=== PATIENT | male | born 1990 | race Caucasian/White ===

== ENCOUNTER 2017-08-18 23:55 | Emergency (ER) | payer MEDICARE, MEDICAID ==
[~2017-08-18] VITALS: Ht 165.1 cm; Wt 52.2 kg
[~2017-08-18 23:55] MED LIST: AGM875T PO; NF-METHYLP PO
--- OUTSIDE RECORDS SUMMARY | 2017-08-19 00:01 | XMS REPORT | Continuity of Care Document ---
Author Author [facility] Organization [facility] Address Unknown Phone Unavailable Allergies Active Description Code Type Severity Reaction Onset Reported/Identified Relationship to Patient Clinical Status Yes prednisone Drug Allergy N/A N/A 08/08/2013 Medications There is no data. Problems Date Dx Coded Attending Type Code Diagnosis Diagnosed By 02/25/2011 111.0 TINEA VERSICOLOR 02/25/2011 V04.81 FLU DX (3 YRS AND ABOVE, IM) 02/25/2011 ALVA JAQUEZ DO 111.0 TINEA VERSICOLOR 02/25/2011 ALVA JAQUEZ DO V04.81 FLU DX (3 YRS AND ABOVE, IM) 02/25/2011 MARISOL REDDY APRN 111.0 TINEA VERSICOLOR 02/25/2011 MARISOL REDDY APRN V04.81 FLU DX (3 YRS AND ABOVE, IM) 02/25/2011 MARISOL REDDY APRN 111.0 TINEA VERSICOLOR 02/25/2011 MARISOL REDDY APRN V04.81 FLU DX (3 YRS AND ABOVE, IM) 10/13/2011 V74.5 STD SCREEN 10/13/2011 ALVA JAQUEZ DO V74.5 STD SCREEN 10/13/2011 MARISOL REDDY APRN V74.5 STD SCREEN 10/13/2011 MARISOL REDDY APRN V74.5 STD SCREEN 07/14/2013 ALVA JAQUEZ DO 461.9 SINUSITIS ACUTE 07/14/2013 ALVA JAQUEZ DO 789.00 ABDOMINAL PAIN UNSPECIFIED SITE 07/14/2013 MARISOL REDDY APRN 461.9 SINUSITIS ACUTE 07/14/2013 MARISOL REDDY APRN 789.00 ABDOMINAL PAIN UNSPECIFIED SITE 07/14/2013 MARISOL REDDY APRN 461.9 SINUSITIS ACUTE 07/14/2013 MARISOL REDDY APRN 789.00 ABDOMINAL PAIN UNSPECIFIED SITE 08/08/2013 MARISOL REDDY APRN 477.9 RHINITIS 08/08/2013 MARISOL REDDY APRN 477.9 RHINITIS 08/18/2013 MARISOL REDDY APRN 780.52 INSOMNIA UNSPECIFIED 08/18/2013 MARISOL REDDY APRN 784.0 HEADACHE Procedures Code [place] [address] ROUTINE VENIPUNCTURE 08/18/2013 47119 URINE DRUG SCREEN (IN-HOUSE ) 08/18/2013 78398 CBC 08/18/2013 8477011 GFR CALC (RESULT ONLY) 08/18/2013 06124 CMP 08/18/2013 92732 LIPID PANEL 08/18/2013 31672 TSH 08/18/2013 Results There is no data. Encounters ACCT No. Visit Date/Time Discharge Status Pt. Type Provider Facility Loc./Unit Complaint [id number] 07/16/2013 21:16:00 07/16/2013 22:22:00 DIS Emergency [id number] 07/15/2013 15:24:00 07/15/2013 16:43:00 DIS Emergency [id number] 08/18/2013 15:15:00 08/18/2013 23:59:59 CLS Outpatient MARISOL REDDY APRN [id number] 08/08/2013 12:44:00 08/08/2013 23:59:59 CLS Outpatient MARISOL REDDY APRN [id number] 07/14/2013 13:07:00 07/14/2013 23:59:59 CLS Outpatient ALVA JAQUEZ DO [id number] 10/13/2011 13:45:00 10/13/2011 23:59:59 CLS Outpatient [id number] 04/24/2015 16:52:47 04/24/2015 23:59:59 CLS Outpatient Blake Servin
--- OUTSIDE RECORDS SUMMARY | 2017-08-19 00:01 | XMS REPORT ---
Author Author Blake Servin [facility] Address [address] [place], [place] [id number] Care Team Providers Care Newscast Producer Name Role Phone Blake Servin PCP Allergies and Adverse Reactions Name Reaction Notes No known drug allergy Plan of Treatment Not available. Medications Name Start Date Expiration Date SIG Comments benztropine 1 mg oral tablet 08/02/2014 10/31/2014 take 1 tablet (1 mg) by oral route 2 times per day for 30 days olanzapine 20 mg oral tablet 08/02/2014 10/31/2014 take 1 tablet (20 mg) by oral route once daily for 30 days omeprazole 40 mg oral capsule,delayed release(DR/EC) 08/02/2014 10/31/2014 take 1 capsule (40 mg) by oral route once daily before a meal for 30 days risperidone 2 mg oral tablet 08/02/2014 10/31/2014 take 1 tablet (2 mg) by oral route 2 times per day for 30 days trazodone 100 mg oral tablet 09/13/2014 10/13/2014 take 1 tablet by oral route once a day (at bedtime) for 30 days Problem List Description Status Onset Bipolar 1 disorder Active Psychosis, Depressive Type Active Cerebral palsy Active Vital Signs Date Time BP-Sys(mm[Hg] BP-Melissa(mm[Hg]) HR(bpm) RR(rpm) Temp WT HT HC BMI BSA BMI Percentile O2 Sat(%) 08/02/2014 8:53:00 AM 110 mmHg 80 mmHg 113 bpm 16 rpm 97.3 F 113 lbs 100 % Social History Name Description Comments Tobacco Never smoker History of Procedures Date Ordered Description Order Status 04/24/2015 12:00 AM INFLUENZA VACCINE QUADRIVALENT 3 YRS PLUS IM Reviewed Results Summary Not available. History Of Immunizations Name Date Admin Mfg Name Mfg Code Trade Name Lot# Route Inj Vis Given Vis Pub CVX Influenza 04/24/2015 sanofi pasteur PMC Fluzone Quadrivalent [id number] Intramuscular Left Deltoid 04/24/2015 01/18/2015 141 History of Past Illness Name Date of Onset Comments Bipolar 1 disorder Psychosis, Depressive Type Cerebral palsy Bipolar 1 disorder Aug 02 2014 8:55AM Psychosis, Depressive Type Aug 02 2014 8:55AM Cerebral palsy Aug 02 2014 8:55AM Flu Vaccine Apr 24 2015 4:01PM Payers Insurance Name Company Name Plan Name Plan Number Policy Number Policy Group Number Start Date [employer] [facility] [place] [facility] [place] [id number] N/A [facility] [place] [facility] 12[facility] July History of Encounters Visit Date Visit Type Provider 04/24/2015 Nurse visit Blake Servin APRN 08/02/2014 Office visit Blake Servin APRN
[2017-08-19 00:58] LABS: BASOPHILS % (AUTO) 0 % (0-10); EOSINOPHILS # (AUTO) 0.2 10^3/uL (0.0-0.3); EOSINOPHILS % (AUTO) 1 % (0-10); HEMATOCRIT 43 % (40-54); HEMOGLOBIN 15.8 G/DL (13.3-17.7); LYMPHOCYTES % (AUTO) 14 % (12-44); MEAN CORPUSCULAR HEMOGLOBIN 31 PG (25-34); MEAN CORPUSCULAR HGB CONC 37 G/DL (32-36); MEAN CORPUSCULAR VOLUME 85 FL (80-99); MONOCYTES # (AUTO) 0.9 X 10^3 (0.0-1.0); MONOCYTES % (AUTO) 7 % (0-12); NEUTROPHILS # (AUTO) 10.7 X 10^3 (1.8-7.8); NEUTROPHILS % (AUTO) 77 % (42-75); PLATELET COUNT 201 10^3/uL (130-400); RED BLOOD COUNT 5.09 10^6/uL (4.35-5.85); RED CELL DISTRIBUTION WIDTH 12.5 % (10.0-14.5); WHITE BLOOD COUNT 13.9 10^3/uL (4.3-11.0)
[2017-08-19 01:18] LABS: ALANINE AMINOTRANSFERASE 15 U/L (0-55); ALBUMIN 4.4 GM/DL (3.2-4.5); ALKALINE PHOSPHATASE 59 U/L (40-136); BILIRUBIN,TOTAL 0.3 MG/DL (0.1-1.0); BUN/CREATININE RATIO 14; CALCIUM 8.8 MG/DL (8.5-10.1); CARBON DIOXIDE 25 MMOL/L (21-32); CHLORIDE 104 MMOL/L (98-107); CREATININE SERUM 0.93 MG/DL (0.60-1.30); GFR ESTIMATED > 60; GLUCOSE 137 MG/DL (70-105); MAGNESIUM 2.4 MG/DL (1.8-2.4); POTASSIUM 3.2 MMOL/L (3.6-5.0); SODIUM 141 MMOL/L (135-145); TOTAL PROTEIN 7.2 GM/DL (6.4-8.2)
[2017-08-19 01:38] LABS: TSH (THYROID ANALYZER) 2.39 UIU/ML (0.35-4.94)
[2017-08-19] MEDS ORDERED: LACTATED RINGERS 1,000 ML IV ONE (01:55)
[2017-08-19 02:09] LABS: BILIRUBIN,URINE NEGATIVE (NEGATIVE); COLOR,URINE YELLOW; GLUCOSE, URINE (UA) 1+ (NEGATIVE); KETONES,URINE NEGATIVE (NEGATIVE); LEUKOCYTE ESTERASE ,URINE 1+ (NEGATIVE); NITRITE,URINE NEGATIVE (NEGATIVE); PH,URINE 6 (5-9); PROTEIN,URINE 2+ (NEGATIVE); UROBILINOGEN,URINE 1 MG/DL (NORMAL)
[2017-08-19 02:18] LABS: BACTERIA,URINE TRACE /HPF; CALCIUM OXALATE CRYSTALS,UR MODERATE /LPF; CLARITY,URINE SLIGHTLY CLOUDY; SQUAMOUS EPITHELIAL CELL,UR RARE /HPF; WBC,URINE RARE /HPF
[2017-08-19 02:25] LABS: AMPHETAMINE SCREEN, URINE NEGATIVE (NEGATIVE); BARBITURATE SCREEN URINE NEGATIVE (NEGATIVE); BENZODIAZEPINES SCREEN URINE NEGATIVE (NEGATIVE); CANNABINOID SCREEN, URINE POSITIVE (NEGATIVE); COCAINE SCREEN URINE NEGATIVE (NEGATIVE); METHADONE STAT NEGATIVE (NEGATIVE); METHAMPHETAMINE SCREEN URINE S NEGATIVE (NEGATIVE); OPIATE SCREEN URINE NEGATIVE (NEGATIVE); OXYCODONE STAT NEGATIVE (NEGATIVE); PROPOXYPHENE STAT NEGATIVE (NEGATIVE); TRICYCLIC ANTIDEPRESSANTS SCRE POSITIVE (NEGATIVE)
--- NOTE | 2017-08-19 02:41 | ED Syncope ---
General Chief Complaint: Dizziness/Syncope Stated Complaint: BLACKED OUT-AT HOME Allergies and Home Medications Allergies Coded Allergies: No Known Drug Allergies (Unverified , 09/06/11) Home Medications Amoxicillin/Clavulanate K 875 Mg Tab, 875 MG PO BID, (Reported) Past Eozvema-Awybxy-Kpjhhx Hx Patient Social History Recent Foreign Travel: No Contact w/Someone Who Travel: No Immunizations Up To Date Date of Influenza Vaccine: Jul 14, 2013 Reproductive System Hx Reproductive Disorders: No Sexually Transmitted Disease: No Physical Exam Vital Signs Capillary Refill : Progress/Results/Core Measures Results/Orders Lab Results Laboratory Tests Test 08/19/17 00:50 08/19/17 01:55 Range/Units White Blood Count 13.9 H 4.3-11.0 10^3/uL Red Blood Count 5.09 4.35-5.85 10^6/uL Hemoglobin 15.8 13.3-17.7 G/DL Hematocrit 43 40-54 % Mean Corpuscular Volume 85 80-99 FL Mean Corpuscular Hemoglobin 31 25-34 PG Mean Corpuscular Hemoglobin Concent 37 H 32-36 G/DL Red Cell Distribution Width 12.5 10.0-14.5 % Platelet Count 201 130-400 10^3/uL Mean Platelet Volume 11.0 H 7.4-10.4 FL Neutrophils (%) (Auto) 77 H 42-75 % Lymphocytes (%) (Auto) 14 12-44 % Monocytes (%) (Auto) 7 0-12 % Eosinophils (%) (Auto) 1 0-10 % Basophils (%) (Auto) 0 0-10 % Neutrophils # (Auto) 10.7 H 1.8-7.8 X 10^3 Lymphocytes # (Auto) 2.0 1.0-4.0 X 10^3 Monocytes # (Auto) 0.9 0.0-1.0 X 10^3 Eosinophils # (Auto) 0.2 0.0-0.3 10^3/uL Basophils # (Auto) 0.0 0.0-0.1 10^3/uL Sodium Level 141 135-145 MMOL/L Potassium Level 3.2 L 3.6-5.0 MMOL/L Chloride Level 104 98-107 MMOL/L Carbon Dioxide Level 25 21-32 MMOL/L Anion Gap 12 5-14 MMOL/L Blood Urea Nitrogen 13 7-18 MG/DL Creatinine 0.93 0.60-1.30 MG/DL Estimat Glomerular Filtration Rate > 60 BUN/Creatinine Ratio 14 Glucose Level 137 H 70-105 MG/DL Calcium Level 8.8 8.5-10.1 MG/DL Magnesium Level 2.4 1.8-2.4 MG/DL Total Bilirubin 0.3 0.1-1.0 MG/DL Aspartate Amino Transf (AST/SGOT) 15 5-34 U/L Alanine Aminotransferase (ALT/SGPT) 15 0-55 U/L Alkaline Phosphatase 59 40-136 U/L Troponin I < 0.30 <0.30 NG/ML Total Protein 7.2 6.4-8.2 GM/DL Albumin 4.4 3.2-4.5 GM/DL TSH [place] Testing 2.39 0.35-4.94 UIU/ML Serum Alcohol < 10 <10 MG/DL Urine Color YELLOW Urine Clarity SLIGHTLY CLOUDY Urine pH 6 5-9 Urine Specific [place] 1.030 H 1.016-1.022 Urine Protein 2+ H NEGATIVE Urine Glucose (UA) 1+ H NEGATIVE Urine Ketones NEGATIVE NEGATIVE Urine Nitrite NEGATIVE NEGATIVE Urine Bilirubin NEGATIVE NEGATIVE Urine Urobilinogen 1 NORMAL MG/DL Urine Leukocyte Esterase 1+ H NEGATIVE Urine RBC (Auto) NEGATIVE NEGATIVE Urine RBC NONE /HPF Urine WBC RARE /HPF Urine Squamous Epithelial Cells RARE /HPF Urine Crystals PRESENT H /LPF Urine Calcium Oxalate Crystals MODERATE H /LPF Urine Bacteria TRACE /HPF Urine Casts NONE /LPF Urine Mucus LARGE H /LPF Urine Culture Indicated NO Urine Opiates Screen NEGATIVE NEGATIVE Urine Oxycodone Screen NEGATIVE NEGATIVE Urine Methadone Screen NEGATIVE NEGATIVE Urine Propoxyphene Screen NEGATIVE NEGATIVE Urine Barbiturates Screen NEGATIVE NEGATIVE Ur Tricyclic Antidepressants Screen POSITIVE H NEGATIVE Urine Phencyclidine Screen NEGATIVE NEGATIVE Urine Amphetamines Screen NEGATIVE NEGATIVE Urine Methamphetamines Screen NEGATIVE NEGATIVE Urine Benzodiazepines Screen NEGATIVE NEGATIVE Urine Cocaine Screen NEGATIVE NEGATIVE Urine Cannabinoids Screen POSITIVE H NEGATIVE My Orders Orders - PHILIPPE,ROS K DO Saline Lock/Iv-Start (08/19/17 00:07) Ekg Tracing (08/19/17 00:07) Monitor-Rhythm Ecg Trace Only (08/19/17 00:07) Orthostatic Vital Signs (Adult (08/19/17 00:07) Alcohol (08/19/17 00:07) Cbc With Automated Diff (08/19/17 00:07) Comprehensive Metabolic Panel (08/19/17 00:07) Drug Screen Stat (Urine) (08/19/17 00:07) Magnesium (08/19/17 00:07) Thyroid Analyzer (08/19/17 00:07) Troponin I (08/19/17 00:07) Ua Culture If Indicated (08/19/17 00:07) Ct Head Wo (08/19/17 00:07) Chest 1 View, Ap/Pa Only (08/19/17 00:07) Saline Lock/Iv-Start (08/19/17 01:55) Lactated Ringers (Lr 1000 Ml Iv Solution (08/19/17 01:55) Medications Given in ED Current Medications Medications Dose Ordered Sig/Cathy Route Start Time Stop Time Status Last Admin Dose Admin Lactated Ringer's 1,000 ml @ 0 mls/hr Q0M ONCE IV 08/19/17 01:55 08/19/17 01:57 DC 08/19/17 02:08 1,000 MLS/HR Departure Impression Impression: Primary Impression: Syncope Additional Impressions: Volume depletion MILD HYPERGLYCEMIA MILD HYPOKALEMIA Disposition: 01 HOME, SELF-CARE Condition: Stable Departure-Patient Inst. Referrals: [facility] (PCP/Family) Primary Care Physician Patient Instructions: Syncope (Fainting) (DC) Add. Discharge Instructions: LOTS OF CLEAR LIQUIDS--WATER, BROTH, JELLO, GATORADE--REDUCED SUGAR SLOW POSITION CHANGES TAKE YOUR MEDICATIONS PRESCRIBED FOLLOW UP WITH [facility] THIS WEEK FOR FURTHER CARE, RETURN TO ER IF SYMPTOMS RETURN OR WORSEN All discharge instructions reviewed with patient and/or family. Voiced understanding. ROS PAEZ DO Aug 19, 2017 02:41
[2017-08-19 02:52] VITALS: BP 121/76
--- NOTE | 2017-08-19 05:17 | Diagnostic Imaging Report ---
INDICATION: Syncope COMPARISON: None FINDINGS: Single frontal view of the chest demonstrates normal heart size and pulmonary vascularity. The lungs are well aerated and clear. No large pleural effusion or pneumothorax is seen. The visualized osseous structures show no acute abnormalities. IMPRESSION: 1. No acute cardiopulmonary process. Dictated by: Dictated on workstation # [id number]
--- NOTE | 2017-08-19 06:15 | Diagnostic Imaging Report ---
INDICATION: Syncope. TECHNIQUE: Routine non contrast-enhanced axial images were obtained from the skull base to the vertex. COMPARISON: None. FINDINGS: The ventricles and cortical sulci are normal in size and contour. There is no midline shift or mass-effect. No acute intra-axial hemorrhage is seen. There are no abnormal areas of increased or decreased density to suggest acute hemorrhage or edema. No extra-axial masses or collections are present. The bony calvarium is intact. The visualized paranasal sinuses show small amount of debris within the right sphenoid sinus. The mastoid air cells are clear. IMPRESSION: 1. No acute intracranial abnormality. No CT evidence of mass, acute infarct or intracranial hemorrhage. 2. Small amount of debris within the right sphenoid sinus. Correlation for underlying acute sinusitis is recommended. Dictated by: Dictated on workstation # [id number]
[2017-08-19] MEDS ORDERED: PALI6TAB PO (07:06)
[2017-08-19] MEDS ORDERED: QUET200T PO (07:06)
[2017-08-19] MEDS ORDERED: OXCA300T PO (07:06)
== END 2017-08-19 02:52 | disposition home or self-care (01) ==
LOC: EDUNIT# 23:55 → ER 23:57
DX: R55 Syncope and collapse (principal); E86.9 Volume depletion, unspecified; R73.9 Hyperglycemia, unspecified; E87.6 Hypokalemia
CPT/HCPCS: 36415; 70450; 71045; 80053; 80306; 80320; 81000; 83735; 84443; 84484; 85025; 93005; 93041; 96360

== ENCOUNTER 2020-09-11 22:46 | Emergency (ER) | payer MEDICARE, MEDICAID ==
[~2020-09-11] VITALS: Ht 165.1 cm; Wt 49.9 kg
[~2020-09-11 22:46] MED LIST changes: +OXCA300T18 PO; +PALI6TAB PO; +QUET200T PO
[2020-09-11] MEDS ORDERED: NS IV 1000 ML 1,000 ML ONE (23:17)
--- NOTE | 2020-09-11 23:39 | ED General ---
General Chief Complaint: Cough/Cold/Flu Symptoms Stated Complaint: FEVER/BODY ACHES/DIARRHEA Source of Information: Patient Exam Limitations: Intoxication History of Present Illness Date Seen by Provider: Sep 11, 2020 Time Seen by Provider: 23:20 Initial Comments Patient is a 29-year-old male who presents to the emergency department with multiple complaints tonight. Patient appears actively intoxicated at presentation. He is glassy eyed and speaking very quietly. He states that he has been vomiting for about 6 months. Patient states he is also had fevers off and on for 6 months and he is concerned that he might have coronavirus. Further history per his nurse was that the patient started getting worse at around 6 PM this evening. He admits to alcohol and marijuana use this evening. He also states that he has occasionally used cocaine but cannot recall the last time he actually did cocaine. Patient states that he has a mildly sore throat. He has a mild headache. He is a little nauseated currently. Patient has a history of mental illness. No thoughts of suicide or homicide tonight. He cannot really tell me if he is hearing voices or seeing things. He does appear to be hallucinating and looking around the room. All other review of systems reviewed and negative except as stated. Timing/Duration: 4-6 Hours Severity: Moderate Associated Systoms: Fever/Chills, Headaches, Loss of Appetite, Malaise, Nausea/Vomiting Allergies and Home Medications Allergies Coded Allergies: No Known Drug Allergies (Unverified , 09/06/11) Home Medications Amoxicillin/Clavulanate K 875 Mg Tab, 875 MG PO BID, (Reported) Oxcarbazepine 300 Mg Tablet, 300 MG PO HS, (Reported) Paliperidone 6 Mg Tab.er.24, 6 MG PO DAILY, (Reported) Quetiapine Fumarate 200 Mg Tablet, 200 MG PO HS, (Reported) Patient Home Medication List Home Medication List Reviewed: Yes Review of Systems Review of Systems Constitutional: see HPI EENTM: throat pain Respiratory: cough, short of breath Cardiovascular: no symptoms reported Gastrointestinal: diarrhea, nausea, vomiting Genitourinary: no symptoms reported Musculoskeletal: no symptoms reported Skin: no symptoms reported Psychiatric/Neurological: Emotional Problems, Headache All Other Systems Reviewed Negative Unless Noted: Yes Past Icciqqp-Bdmxsh-Oczlks Hx Immunizations Up To Date PED Vaccines UTD: Yes Date of Influenza Vaccine: Jul 14, 2013 Past Medical History Surgeries: Yes ("BALLOONS IN LUNGS" --REMOVED AT AGE 16; EYE SURGERY; HERNIA REPAIR) Abdominal, Eye Surgery Respiratory: Yes (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 AT AGE 16) Cardiac: No Neurological: Yes Cerebral Palsy, Developmental Disorder, Seizure Disorder Reproductive Disorders: No Sexually Transmitted Disease: No Genitourinary: No Gastrointestinal: Yes (HERNIA REPAIR) Abdominal Hernia Musculoskeletal: Yes (CP) Endocrine: No HEENT: Yes (EYE SURGERY) Cancer: No Psychosocial: Yes (UNDIFFERENTIATED PSYCHOSIS, SLEEPING DISORDER, MR) Sleep Difficulties, Schizophrenia Integumentary: No Blood Disorders: No Physical Exam Vital Signs Vital Signs - First Documented 09/11/20 22:57 Temp 37.2 Pulse 147 Resp 20 B/P (MAP) 144/90 (108) O2 Delivery Room Air Capillary Refill : Height, Weight, BMI Height: 5'5.00" Weight: 115lbs. oz. 52.025552km; BMI Method:Stated General Appearance: No Apparent Distress, WD/WN Eyes: Bilateral Eye Normal Inspection, Bilateral Eye PERRL, Bilateral Eye EOMI HEENT: PERRL/EOMI (scleral injection), Pharynx Normal Neck: Normal Inspection Respiratory: Lungs Clear, Normal Breath Sounds, No Accessory Muscle Use, No Respiratory Distress Cardiovascular: Regular Rate, Rhythm, Tachycardia Gastrointestinal: Non Tender, Soft Extremity: Normal Capillary Refill, Normal Inspection, Normal Range of Motion Neurologic/Psychiatric: Alert, Oriented x3, No Motor/Sensory Deficits, Depressed Affect Skin: Normal Color, Warm/Dry Progress/Results/Core Measures Suspected Sepsis SIRS Temperature: Pulse: Respiratory Rate: Laboratory Tests 09/11/20 23:15: White Blood Count 11.3H Blood Pressure / Mean: Laboratory Tests 09/11/20 23:15: Creatinine 0.90, Platelet Count 205, Total Bilirubin 0.7 Results/Orders Lab Results Laboratory Tests Test 09/11/20 00:02 09/11/20 23:15 Range/Units Urine Opiates Screen NEGATIVE NEGATIVE Urine Oxycodone Screen NEGATIVE NEGATIVE Urine Methadone Screen NEGATIVE NEGATIVE Urine Propoxyphene Screen NEGATIVE NEGATIVE Urine Barbiturates Screen NEGATIVE NEGATIVE Ur Tricyclic Antidepressants Screen POSITIVE H NEGATIVE Urine Phencyclidine Screen NEGATIVE NEGATIVE Urine Amphetamines Screen NEGATIVE NEGATIVE Urine Methamphetamines Screen NEGATIVE NEGATIVE Urine Benzodiazepines Screen NEGATIVE NEGATIVE Urine Cocaine Screen NEGATIVE NEGATIVE Urine Cannabinoids Screen POSITIVE H NEGATIVE White Blood Count 11.3 H 4.3-11.0 10^3/uL Red Blood Count 5.66 H 4.30-5.52 10^6/uL Hemoglobin 17.6 13.3-17.7 g/dL Hematocrit 50 40-54 % Mean Corpuscular Volume 88 80-99 fL Mean Corpuscular Hemoglobin 31 25-34 pg Mean Corpuscular Hemoglobin Concent 35 32-36 g/dL Red Cell Distribution Width 11.9 10.0-14.5 % Platelet Count 205 130-400 10^3/uL Mean Platelet Volume 10.9 9.0-12.2 fL Immature Granulocyte % (Auto) 0 % Neutrophils (%) (Auto) 79 H 42-75 % Lymphocytes (%) (Auto) 14 12-44 % Monocytes (%) (Auto) 6 0-12 % Eosinophils (%) (Auto) 0 0-10 % Basophils (%) (Auto) 0 0-10 % Neutrophils # (Auto) 8.9 H 1.8-7.8 10^3/uL Lymphocytes # (Auto) 1.6 1.0-4.0 10^3/uL Monocytes # (Auto) 0.7 0.0-1.0 10^3/uL Eosinophils # (Auto) 0.0 0.0-0.3 10^3/uL Basophils # (Auto) 0.0 0.0-0.1 10^3/uL Immature Granulocyte # (Auto) 0.0 0.0-0.1 10^3/uL Sodium Level 138 135-145 MMOL/L Potassium Level 3.2 L 3.6-5.0 MMOL/L Chloride Level 102 98-107 MMOL/L Carbon Dioxide Level 20 L 21-32 MMOL/L Anion Gap 16 H 5-14 MMOL/L Blood Urea Nitrogen 7 7-18 MG/DL Creatinine 0.90 0.60-1.30 MG/DL Estimat Glomerular Filtration Rate > 60 BUN/Creatinine Ratio 8 Glucose Level 125 H 70-105 MG/DL Calcium Level 9.3 8.5-10.1 MG/DL Corrected Calcium 8.5-10.1 MG/DL Total Bilirubin 0.7 0.1-1.0 MG/DL Aspartate Amino Transf (AST/SGOT) 18 5-34 U/L Alanine Aminotransferase (ALT/SGPT) 14 0-55 U/L Alkaline Phosphatase 52 40-136 U/L Total Protein 7.5 6.4-8.2 GM/DL Albumin 4.8 H 3.2-4.5 GM/DL Serum Alcohol < 10 <10 MG/DL Coronavirus 2019 (EILEEN) Negative Negative My Orders Orders - LAMAR GILL MD Ns Iv 1000 Ml (Sodium Chloride 0.9%) (09/11/20 23:17) Ed Iv/Invasive Line Start (09/11/20 23:39) Cbc With Automated Diff (09/11/20 23:39) Comprehensive Metabolic Panel (09/11/20 23:39) Alcohol (09/11/20 23:39) Drug Screen Stat (Urine) (09/11/20 23:39) Covid 19 Inhouse Test (09/11/20 23:39) Ns Iv 1000 Ml (Sodium Chloride 0.9%) (09/11/20 23:45) Medications Given in ED Current Medications Medications Dose Ordered Sig/Cathy Route Start Time Stop Time Status Last Admin Dose Admin Sodium Chloride 1,000 ml @ STK-MED ONCE .ROUTE 09/11/20 23:17 09/11/20 23:23 DC 09/11/20 23:29 999 MLS/HR Vital Signs/I&O 09/11/20 09/11/20 22:57 22:57 Temp 37.2 Pulse 147 Resp 20 B/P (MAP) 144/90 (108) O2 Delivery Room Air Room Air Capillary Refill : Progress Note : Time: 01:09 Progress Note Patient has been resting comfortably throughout his stay here in the emergency department. When I awoke him just now he states that he is feeling much better he is no longer nauseated. Patient has no complaints of pain. No complaints of fever at this time. Labs have been reviewed. Patient has a very minimal leukocytosis. He has a little bit of hypokalemia I think that this can be corrected with diet. Patient has a mild anion gap and I suspect that this might be from his earlier alcohol use, even though at the present time his alcohol is nondetectable. He has been treated in the emergency department with 2 L of IV fluids. He will be given some Zofran for home. He has no clinical or objective findings to warrant further studies from the emergency department nor admission. I have talked with Luis Eduardo and advised him of his lab results. All questions are sought and answered. He is comfortable with discharge. Departure Impression Primary Impression: Nausea & vomiting Qualified Codes: R11.2 - Nausea with vomiting, unspecified Disposition: HOME, SELF-CARE Condition: Stable Departure-Patient Inst. Decision time for Depature: 01:11 Referrals: [facility] (PCP/Family) Primary Care Physician Patient Instructions: Nausea and Vomiting, Adult (DC) Add. Discharge Instructions: Use the nausea medication I have provided for you every 8 hours as needed. Please drink plenty of fluids to stay well-hydrated. You should try and cut back on your use of pot and any other drugs. Follow-up with [facility]. Return to the emergency department if you have a return of symptoms especially associated with pain, fever or any other emergent complaints LAMAR GILL MD Sep 11, 2020 23:39
[2020-09-11] MEDS ORDERED: NS IV 1000 ML 1,000 ML IV SCH (23:45)
[2020-09-11 23:46] LABS: BASOPHILS % (AUTO) 0 % (0-10); EOSINOPHILS % (AUTO) 0 % (0-10); HEMATOCRIT 50 % (40-54); HEMOGLOBIN 17.6 g/dL (13.3-17.7); LYMPHOCYTES # (AUTO) 1.6 10^3/uL (1.0-4.0); LYMPHOCYTES % (AUTO) 14 % (12-44); MEAN CORPUSCULAR HEMOGLOBIN 31 pg (25-34); MEAN CORPUSCULAR HGB CONC 35 g/dL (32-36); MEAN CORPUSCULAR VOLUME 88 fL (80-99); MEAN PLATELET VOLUME 10.9 fL (9.0-12.2); MONOCYTES # (AUTO) 0.7 10^3/uL (0.0-1.0); MONOCYTES % (AUTO) 6 % (0-12); NEUTROPHILS # (AUTO) 8.9 10^3/uL (1.8-7.8); NEUTROPHILS % (AUTO) 79 % (42-75); PLATELET COUNT 205 10^3/uL (130-400); WHITE BLOOD COUNT 11.3 10^3/uL (4.3-11.0)
[2020-09-11 23:59] LABS: ALANINE AMINOTRANSFERASE 14 U/L (0-55); ALBUMIN 4.8 GM/DL (3.2-4.5); ALKALINE PHOSPHATASE 52 U/L (40-136); BILIRUBIN,TOTAL 0.7 MG/DL (0.1-1.0); BUN/CREATININE RATIO 8; CALCIUM 9.3 MG/DL (8.5-10.1); CARBON DIOXIDE 20 MMOL/L (21-32); CHLORIDE 102 MMOL/L (98-107); GFR ESTIMATED > 60; GLUCOSE 125 MG/DL (70-105); POTASSIUM 3.2 MMOL/L (3.6-5.0); SODIUM 138 MMOL/L (135-145); TOTAL PROTEIN 7.5 GM/DL (6.4-8.2)
[2020-09-12 00:36] LABS: AMPHETAMINE SCREEN, URINE NEGATIVE (NEGATIVE); BARBITURATE SCREEN URINE NEGATIVE (NEGATIVE); BENZODIAZEPINES SCREEN URINE NEGATIVE (NEGATIVE); CANNABINOID SCREEN, URINE POSITIVE (NEGATIVE); COCAINE SCREEN URINE NEGATIVE (NEGATIVE); METHADONE STAT NEGATIVE (NEGATIVE); METHAMPHETAMINE SCREEN URINE S NEGATIVE (NEGATIVE); OPIATE SCREEN URINE NEGATIVE (NEGATIVE); OXYCODONE STAT NEGATIVE (NEGATIVE); PROPOXYPHENE STAT NEGATIVE (NEGATIVE); TRICYCLIC ANTIDEPRESSANTS SCRE POSITIVE (NEGATIVE)
[2020-09-12] MEDS ORDERED: RX-ONDANSETRON 4 MG ODT (ZOFRAN) PPK #4 PO STA (01:13)
[2020-09-12 01:22] VITALS: BP 125/79
== END 2020-09-12 01:24 | disposition home or self-care (01) ==
LOC: EDUNIT# 22:46 → ER 22:47
DX: R11.2 Nausea with vomiting, unspecified (principal); R19.7 Diarrhea, unspecified; R00.0 Tachycardia, unspecified; E87.6 Hypokalemia; D72.829 Elevated white blood cell count, unspecified; G47.9 Sleep disorder, unspecified; F20.9 Schizophrenia, unspecified; F89 Unspecified disorder of psychological development; G40.909 Epilepsy, unspecified, not intractable, without status epilepticus; Z86.69 Personal history of other diseases of the nervous system and sense organs; Z20.822 Contact with and (suspected) exposure to COVID-19; Z79.899 Other long term (current) drug therapy
CPT/HCPCS: 36415; 80053; 80306; 80320; 85025; 87635